=== PATIENT | female | born 1990 | race Caucasian/White ===

== ENCOUNTER 2017-10-23 | Inpatient (IN) | payer OTHER ==
[2017-10-23] MEDS: SOD CHLORIDE 0.9% 1,000 ML IV (00:56)
[2017-10-23] MEDS: KETOROLAC 30 MG INJ IV ×4 (00:56→22:34)
[2017-10-23] MEDS: PROCHLORPERAZINE 10 MG INJ IV ×2 (00:56→09:14)
[2017-10-23] MEDS: DIPHENHYDRAMINE 50 MG INJ IV ×2 (00:56→09:21)
[2017-10-23 01:15] LABS: ADD MAN DIFF? NO
[2017-10-23 01:21] LABS: BASOPHIL # 0.1 10^3/ul (0.0-0.1); BASOPHILS % 0.9 % (0.0-2.0); EOSINOPHILS # 0.2 10^3/ul (0.0-0.5); HEMATOCRIT 40.5 % (37.0-47.0); HEMOGLOBIN 13.8 g/dl (12.0-16.0); LYMPHOCYTES # 3.3 10^3/ul (0.8-2.9); LYMPHOCYTES % 33.5 % (15.0-51.0); MEAN CORPUSCULAR HEMOGLOBIN 31.1 pg (29.0-33.0); MEAN CORPUSCULAR HGB CONC 34.1 g/dl (32.0-37.0); MEAN CORPUSCULAR VOLUME 91.2 fl (82.0-101.0); MEAN PLATELET VOLUME 12.5 fl (7.4-10.4); MONOCYTE # 0.9 10^3/ul (0.3-0.9); MONOCYTES % 8.5 % (0.0-11.0); NEUTROPHIL # 5.5 10^3/ul (1.6-7.5); NEUTROPHILS % 54.9 % (39.0-77.0); PLATELET COUNT 202 10^3/UL (140-415); RED BLOOD COUNT 4.44 10^6/ul (4.20-5.40); RED CELL DISTRIBUTION WIDTH 12.4 % (11.5-14.5)
[2017-10-23 01:25] LABS: ADD UMIC NO; UR ASCORBIC ACID NEGATIVE (NEGATIVE); UR BILIRUBIN (Dip) NEGATIVE (NEGATIVE); UR BLOOD (Dip) NEGATIVE (NEGATIVE); UR CLARITY CLEAR (CLEAR); UR COLOR STRAW (YELLOW); UR GLUCOSE (Dip) NEGATIVE (NEGATIVE); UR KETONES (Dip) NEGATIVE (NEGATIVE); UR LEUKOCYTE ESTERASE (Dip) NEGATIVE Leu/ul (NEGATIVE); UR NITRITE (Dip) NEGATIVE (NEGATIVE); UR SPECIFIC GRAVITY (Dip) 1.005 (1.003-1.030); UR TOTAL PROTEIN (Dip) NEGATIVE (NEGATIVE); UR UROBILINOGEN (Dip) NEGATIVE (NEGATIVE)
[2017-10-23 01:39] LABS: ANION GAP 24 (8-16); BLOOD UREA NITROGEN 19 mg/dl (7-20); CALCIUM 10.3 mg/dl (8.4-10.2); CARBON DIOXIDE 20 mmol/L (21-31); CHLORIDE 107 mmol/L (97-110); GLUCOSE 97 mg/dl (70-220); SODIUM 147 mmol/L (135-144)
[2017-10-23 02:40] LABS: LITHIUM < 0.4 mmol/L (0.6-1.3)
[2017-10-23] MEDS ORDERED: OXCARBAZEPINE 150 MG TAB PO (09:00)
[2017-10-23] MEDS: OXCARBAZEPINE 150 MG TAB PO (09:15)
[2017-10-23] MEDS: SOD CHLORIDE 0.9% 500 ML IV (09:20)
[2017-10-23] MEDS: DEXTROSE 5%-0.45% NACL 1,000 ML IV ×2 (11:12→23:00)
[2017-10-23] MEDS: PANTOPRAZOLE (EC) 40 MG TAB PO (13:07)
[2017-10-23] MEDS: LORAZEPAM 0.5 MG TAB PO (19:00)
[2017-10-23] MEDS: DOCUSATE SODIUM 100 MG CAP PO (20:11)
[2017-10-23] MEDS: ACETAMINOPHEN 325 MG TAB PO (20:11)
[2017-10-23] MEDS: ONDANSETRON 4 MG INJ IV (23:17)
[2017-10-24] MEDS: PANTOPRAZOLE (EC) 40 MG TAB PO (05:03)
[2017-10-24 05:39] LABS: ADD MAN DIFF? NO
[2017-10-24 05:48] LABS: BASOPHIL # 0.1 10^3/ul (0.0-0.1); BASOPHILS % 0.7 % (0.0-2.0); EOSINOPHILS # 0.2 10^3/ul (0.0-0.5); EOSINOPHILS % 2.6 % (0.0-7.0); HEMATOCRIT 35.1 % (37.0-47.0); HEMOGLOBIN 11.8 g/dl (12.0-16.0); LYMPHOCYTES # 3.8 10^3/ul (0.8-2.9); LYMPHOCYTES % 44.9 % (15.0-51.0); MEAN CORPUSCULAR HEMOGLOBIN 31.1 pg (29.0-33.0); MEAN CORPUSCULAR HGB CONC 33.6 g/dl (32.0-37.0); MEAN CORPUSCULAR VOLUME 92.6 fl (82.0-101.0); MEAN PLATELET VOLUME 10.9 fl (7.4-10.4); MONOCYTE # 0.7 10^3/ul (0.3-0.9); MONOCYTES % 8.1 % (0.0-11.0); NEUTROPHIL # 3.7 10^3/ul (1.6-7.5); NEUTROPHILS % 43.6 % (39.0-77.0); PLATELET COUNT 205 10^3/UL (140-415); RED BLOOD COUNT 3.79 10^6/ul (4.20-5.40)
[2017-10-24 05:48] LABS: WHITE BLOOD COUNT 8.4 10^3/ul (4.8-10.8)
[2017-10-24 06:55] LABS: ANION GAP 15 (8-16); BLOOD UREA NITROGEN 15 mg/dl (7-20); CARBON DIOXIDE 21 mmol/L (21-31); CHLORIDE 111 mmol/L (97-110); CREATININE 0.68 mg/dl (0.44-1.00); GLUCOSE 89 mg/dl (70-220); POTASSIUM 3.9 mmol/L (3.5-5.1); SODIUM 143 mmol/L (135-144)
[2017-10-24] MEDS: DOCUSATE SODIUM 100 MG CAP PO ×2 (08:33→20:42)
[2017-10-24] MEDS: predniSONE 20 MG TAB PO (08:33)
[2017-10-24] MEDS: ONDANSETRON 4 MG INJ IV ×2 (08:43→16:36)
[2017-10-24] MEDS: SUMATRIPTAN 50 MG TAB PO ×2 (10:14→23:05)
[2017-10-24] MEDS: LORAZEPAM 0.5 MG TAB PO ×3 (10:57→23:04)
[2017-10-24 11:10] LABS: LITHIUM < 0.4 mmol/L (0.6-1.3)
[2017-10-24] MEDS: KETOROLAC 30 MG INJ IV ×2 (11:11→17:23)
[2017-10-24] MEDS: DEXTROSE 5%-0.45% NACL 1,000 ML IV ×2 (11:30→19:38)
[2017-10-24] MEDS: ACET/BUTAL/CAFF TAB PO (13:02)
[2017-10-24] MEDS: HYDROmorphONE 2 MG/ML SYG IV (16:23)
[2017-10-24] MEDS: morphine 2 MG INJ IV (20:43)
[2017-10-24] MEDS: DIPHENHYDRAMINE 50 MG INJ IV (23:06)
[2017-10-24] MEDS: PROCHLORPERAZINE 10 MG INJ IV (23:06)
[2017-10-25 05:08] LABS: ADD MAN DIFF? NO
[2017-10-25 05:12] LABS: BASOPHIL # 0.1 10^3/ul (0.0-0.1); BASOPHILS % 0.8 % (0.0-2.0); EOSINOPHILS # 0.1 10^3/ul (0.0-0.5); EOSINOPHILS % 1.9 % (0.0-7.0); HEMATOCRIT 31.9 % (37.0-47.0); HEMOGLOBIN 10.9 g/dl (12.0-16.0); LYMPHOCYTES # 3.2 10^3/ul (0.8-2.9); MEAN CORPUSCULAR HEMOGLOBIN 30.9 pg (29.0-33.0); MEAN CORPUSCULAR HGB CONC 34.2 g/dl (32.0-37.0); MEAN CORPUSCULAR VOLUME 90.4 fl (82.0-101.0); MEAN PLATELET VOLUME 10.9 fl (7.4-10.4); MONOCYTE # 0.7 10^3/ul (0.3-0.9); MONOCYTES % 9.9 % (0.0-11.0); NEUTROPHIL # 3.3 10^3/ul (1.6-7.5); NEUTROPHILS % 44.3 % (39.0-77.0); PLATELET COUNT 209 10^3/UL (140-415); RED BLOOD COUNT 3.53 10^6/ul (4.20-5.40); RED CELL DISTRIBUTION WIDTH 12.3 % (11.5-14.5)
[2017-10-25 05:12] LABS: WHITE BLOOD COUNT 7.5 10^3/ul (4.8-10.8)
[2017-10-25 05:45] LABS: ANION GAP 13 (8-16); BLOOD UREA NITROGEN 16 mg/dl (7-20); CALCIUM 8.7 mg/dl (8.4-10.2); CARBON DIOXIDE 22 mmol/L (21-31); CHLORIDE 109 mmol/L (97-110); CREATININE 0.68 mg/dl (0.44-1.00); GLUCOSE 97 mg/dl (70-220); POTASSIUM 3.3 mmol/L (3.5-5.1); SODIUM 141 mmol/L (135-144)
[2017-10-25] MEDS: PANTOPRAZOLE (EC) 40 MG TAB PO (06:01)
[2017-10-25] MEDS: DOCUSATE SODIUM 100 MG CAP PO ×2 (08:34→20:15)
[2017-10-25] MEDS: predniSONE 20 MG TAB PO (08:35)
[2017-10-25 10:51] LABS: INR 1.13; PROTIME 14.7 Sec (11.9-14.9); PT RATIO 1.1
[2017-10-25 10:52] LABS: PARTIAL THROMBOPLASTIN TIME 26.5 Sec (25.0-35.0)
[2017-10-25] MEDS: DIPHENHYDRAMINE 50 MG INJ IV ×2 (13:30→16:20)
[2017-10-25] MEDS: PROCHLORPERAZINE 10 MG INJ IV ×2 (13:30→16:20)
[2017-10-25] MEDS: LORAZEPAM 0.5 MG TAB PO (15:12)
[2017-10-25] MEDS: DEXTROSE 5%-0.45% NACL 1,000 ML IV (15:12)
[2017-10-25] MEDS: morphine 2 MG INJ IV ×3 (15:37→23:52)
[2017-10-25] MEDS: POTASSIUM CHLORIDE 20 MEQ POWDER FOR ORAL SOLN PO (16:23)
[2017-10-25 16:29] LABS: CSF RBC 0 /uL (0-0); CSF WBC 0 /cmm (0-10)
[2017-10-25 16:43] LABS: CSF CLARITY CLEAR; CSF VOLUME 5.5 ml; CSF#TUBE COUNT TUBE#4; CSF#TUBES REC'D 4
[2017-10-25 16:43] LABS: CSF COLOR COLORLESS
[2017-10-25 16:55] LABS: TOTAL PROTEIN,CSF 30 mg/dl (12-60)
[2017-10-25 16:55] LABS: GLUCOSE,CSF 59 mg/dl (50-80)
[2017-10-25] MEDS: KETOROLAC 30 MG INJ IV (18:29)
[2017-10-25] MEDS: ONDANSETRON 4 MG INJ IV (20:14)
[2017-10-25] MEDS: CYCLOBENZAPRINE 10 MG TAB PO (23:13)
[2017-10-26] MEDS: DEXTROSE 5%-0.45% NACL 1,000 ML IV ×3 (01:00→15:40)
[2017-10-26] MEDS: HYDROmorphONE 2 MG/ML SYG IV ×4 (01:37→20:43)
[2017-10-26 05:51] LABS: ADD MAN DIFF? NO
[2017-10-26 05:54] LABS: WHITE BLOOD COUNT 8.5 10^3/ul (4.8-10.8)
[2017-10-26 05:54] LABS: BASOPHIL # 0.1 10^3/ul (0.0-0.1); BASOPHILS % 0.7 % (0.0-2.0); EOSINOPHILS # 0.1 10^3/ul (0.0-0.5); EOSINOPHILS % 1.7 % (0.0-7.0); HEMATOCRIT 32.9 % (37.0-47.0); HEMOGLOBIN 11.2 g/dl (12.0-16.0); LYMPHOCYTES # 3.5 10^3/ul (0.8-2.9); LYMPHOCYTES % 41.3 % (15.0-51.0); MEAN CORPUSCULAR VOLUME 91.1 fl (82.0-101.0); MEAN PLATELET VOLUME 10.8 fl (7.4-10.4); MONOCYTE # 0.7 10^3/ul (0.3-0.9); NEUTROPHIL # 4.1 10^3/ul (1.6-7.5); NEUTROPHILS % 48.2 % (39.0-77.0); PLATELET COUNT 200 10^3/UL (140-415); RED BLOOD COUNT 3.61 10^6/ul (4.20-5.40); RED CELL DISTRIBUTION WIDTH 12.1 % (11.5-14.5)
[2017-10-26] MEDS: PANTOPRAZOLE (EC) 40 MG TAB PO (06:24)
[2017-10-26] MEDS: LORAZEPAM 0.5 MG TAB PO ×2 (06:24→18:15)
[2017-10-26] MEDS: KETOROLAC 30 MG INJ IV ×2 (06:34→18:13)
[2017-10-26 06:36] LABS: ANION GAP 14 (8-16); BLOOD UREA NITROGEN 19 mg/dl (7-20); CALCIUM 8.6 mg/dl (8.4-10.2); CARBON DIOXIDE 22 mmol/L (21-31); CHLORIDE 110 mmol/L (97-110); CREATININE 0.75 mg/dl (0.44-1.00); GLUCOSE 101 mg/dl (70-220); POTASSIUM 3.4 mmol/L (3.5-5.1); SODIUM 143 mmol/L (135-144)
[2017-10-26] MEDS: PROCHLORPERAZINE 10 MG INJ IV ×2 (07:29→19:27)
[2017-10-26] MEDS: DIPHENHYDRAMINE 50 MG INJ IV ×2 (07:29→19:27)
[2017-10-26] MEDS: predniSONE 20 MG TAB PO (11:40)
[2017-10-26] MEDS: DOCUSATE SODIUM 100 MG CAP PO ×2 (11:40→21:10)
[2017-10-26] MEDS: POTASSIUM CHLORIDE 20 MEQ POWDER FOR ORAL SOLN PO (14:06)
[2017-10-26] MEDS: SUMATRIPTAN 50 MG TAB PO (15:26)
[2017-10-26] MEDS: ONDANSETRON 4 MG INJ IV (15:45)
[2017-10-26] MEDS ORDERED: morphine LIQ (10 MG/5 ML) CUP PO (19:30)
[2017-10-27] MEDS: HYDROmorphONE 2 MG/ML SYG IV ×4 (00:57→13:35)
[2017-10-27] MEDS: OXCARBAZEPINE 600 MG PO ×2 (01:56→20:53)
[2017-10-27] MEDS: DEXTROSE 5%-0.45% NACL 1,000 ML IV ×3 (02:00→17:49)
[2017-10-27] MEDS: LORAZEPAM 0.5 MG TAB PO ×2 (04:43→16:28)
[2017-10-27] MEDS: KETOROLAC 30 MG INJ IV ×3 (04:44→23:27)
[2017-10-27 05:56] LABS: ANION GAP 15 (8-16); BLOOD UREA NITROGEN 13 mg/dl (7-20); CALCIUM 9.1 mg/dl (8.4-10.2); CARBON DIOXIDE 22 mmol/L (21-31); CHLORIDE 109 mmol/L (97-110); CREATININE 0.67 mg/dl (0.44-1.00); GLUCOSE 98 mg/dl (70-220); POTASSIUM 3.8 mmol/L (3.5-5.1); SODIUM 142 mmol/L (135-144)
[2017-10-27] MEDS: PANTOPRAZOLE (EC) 40 MG TAB PO (06:36)
[2017-10-27] MEDS: DIPHENHYDRAMINE 50 MG INJ IV ×3 (08:04→20:52)
[2017-10-27] MEDS: PROCHLORPERAZINE 10 MG INJ IV (08:04)
[2017-10-27] MEDS: predniSONE 20 MG TAB PO (09:31)
[2017-10-27] MEDS: DOCUSATE SODIUM 100 MG CAP PO ×2 (09:31→20:52)
[2017-10-27] MEDS: DIVALPROEX (EC) 250 MG TAB PO ×2 (13:35→23:22)
[2017-10-27] MEDS: PROCHLORPERAZINE 10 MG TAB PO (17:28)
[2017-10-27] MEDS: traMADol 50 MG TAB PO (18:34)
[2017-10-27] MEDS: ONDANSETRON 4 MG INJ IV (19:56)
[2017-10-27] MEDS: LORAZEPAM 2 MG INJ IV (20:52)
[2017-10-28] MEDS: LORAZEPAM 0.5 MG TAB PO ×5 (00:26→18:57)
[2017-10-28] MEDS: HYDROmorphONE 0.5 MG/0.5 ML SYG IV (00:27)
[2017-10-28] MEDS: PROCHLORPERAZINE 10 MG TAB PO ×2 (00:51→22:20)
[2017-10-28] MEDS: DIPHENHYDRAMINE 50 MG INJ IV ×4 (00:51→22:20)
[2017-10-28] MEDS: DEXTROSE 5%-0.45% NACL 1,000 ML IV ×2 (03:00→05:16)
[2017-10-28] MEDS: ONDANSETRON 4 MG INJ IV ×3 (05:22→16:40)
[2017-10-28] MEDS: PANTOPRAZOLE (EC) 40 MG TAB PO (05:22)
[2017-10-28] MEDS: traMADol 50 MG TAB PO ×2 (05:23→11:35)
[2017-10-28] MEDS: DOCUSATE SODIUM 100 MG CAP PO ×2 (09:42→20:52)
[2017-10-28] MEDS: DIVALPROEX (EC) 250 MG TAB PO ×2 (09:42→20:51)
[2017-10-28] MEDS: CYCLOBENZAPRINE 10 MG TAB PO ×2 (12:43→20:51)
[2017-10-28 15:07] LABS: ADD MAN DIFF? NO
[2017-10-28 15:12] LABS: BASOPHIL # 0.1 10^3/ul (0.0-0.1); BASOPHILS % 1.2 % (0.0-2.0); EOSINOPHILS # 0.1 10^3/ul (0.0-0.5); HEMATOCRIT 31.8 % (37.0-47.0); LYMPHOCYTES # 3.6 10^3/ul (0.8-2.9); LYMPHOCYTES % 51.5 % (15.0-51.0); MEAN CORPUSCULAR HEMOGLOBIN 31.2 pg (29.0-33.0); MEAN CORPUSCULAR HGB CONC 34.6 g/dl (32.0-37.0); MEAN CORPUSCULAR VOLUME 90.1 fl (82.0-101.0); MEAN PLATELET VOLUME 10.9 fl (7.4-10.4); MONOCYTE # 0.5 10^3/ul (0.3-0.9); MONOCYTES % 7.4 % (0.0-11.0); NEUTROPHIL # 2.6 10^3/ul (1.6-7.5); NEUTROPHILS % 37.8 % (39.0-77.0); PLATELET COUNT 192 10^3/UL (140-415); RED BLOOD COUNT 3.53 10^6/ul (4.20-5.40); RED CELL DISTRIBUTION WIDTH 12.1 % (11.5-14.5)
[2017-10-28 15:12] LABS: WHITE BLOOD COUNT 6.9 10^3/ul (4.8-10.8)
[2017-10-28 15:42] LABS: ANION GAP 11 (8-16); BLOOD UREA NITROGEN 10 mg/dl (7-20); CALCIUM 8.5 mg/dl (8.4-10.2); CARBON DIOXIDE 26 mmol/L (21-31); CHLORIDE 108 mmol/L (97-110); CREATININE 0.68 mg/dl (0.44-1.00); GLUCOSE 87 mg/dl (70-220); POTASSIUM 3.3 mmol/L (3.5-5.1); SODIUM 142 mmol/L (135-144)
[2017-10-28] MEDS ORDERED: SOD CHLORIDE 0.9% 1,000 ML IV ×2 (16:30)
[2017-10-28] MEDS ORDERED: DIPHENHYDRAMINE 50 MG CAP PO (16:30)
[2017-10-28] MEDS: KETOROLAC 30 MG INJ IV ×2 (16:40→22:40)
[2017-10-28] MEDS: POTASSIUM CHLORIDE 20 MEQ POWDER FOR ORAL SOLN PO (17:30)
[2017-10-28] MEDS: POTASSIUM CHLORIDE (SR) 20 MEQ TAB PO (20:52)
[2017-10-28] MEDS: OXCARBAZEPINE 600 MG PO (20:52)
[2017-10-29] MEDS: PANTOPRAZOLE (EC) 40 MG TAB PO (05:16)
[2017-10-29] MEDS: POTASSIUM CHLORIDE 30 MEQ in SOD CHLORIDE 0.9% 1,000 ML IV ×2 (05:16→19:15)
[2017-10-29] MEDS: PROCHLORPERAZINE 10 MG TAB PO ×3 (05:21→22:59)
[2017-10-29] MEDS: DIPHENHYDRAMINE 50 MG INJ IV ×4 (05:21→23:01)
[2017-10-29] MEDS: KETOROLAC 30 MG INJ IV ×4 (05:22→23:00)
[2017-10-29] MEDS: LORAZEPAM 0.5 MG TAB PO ×4 (05:24→23:01)
[2017-10-29] MEDS: DOCUSATE SODIUM 100 MG CAP PO ×2 (08:34→21:09)
[2017-10-29] MEDS: CYCLOBENZAPRINE 10 MG TAB PO ×2 (08:34→16:36)
[2017-10-29] MEDS: DIVALPROEX (EC) 250 MG TAB PO ×2 (08:34→21:09)
[2017-10-29] MEDS: ONDANSETRON 4 MG INJ IV (10:18)
[2017-10-29 14:00] LABS: ADD MAN DIFF? NO
[2017-10-29 14:02] LABS: BASOPHIL # 0.1 10^3/ul (0.0-0.1); BASOPHILS % 1.3 % (0.0-2.0); EOSINOPHILS # 0.2 10^3/ul (0.0-0.5); HEMATOCRIT 41.2 % (37.0-47.0); HEMOGLOBIN 13.8 g/dl (12.0-16.0); LYMPHOCYTES # 2.2 10^3/ul (0.8-2.9); LYMPHOCYTES % 34.1 % (15.0-51.0); MEAN CORPUSCULAR HEMOGLOBIN 30.6 pg (29.0-33.0); MEAN CORPUSCULAR HGB CONC 33.5 g/dl (32.0-37.0); MEAN CORPUSCULAR VOLUME 91.4 fl (82.0-101.0); MEAN PLATELET VOLUME 10.5 fl (7.4-10.4); MONOCYTE # 0.5 10^3/ul (0.3-0.9); MONOCYTES % 7.1 % (0.0-11.0); NEUTROPHIL # 3.4 10^3/ul (1.6-7.5); NEUTROPHILS % 54.3 % (39.0-77.0); PLATELET COUNT 248 10^3/UL (140-415); RED BLOOD COUNT 4.51 10^6/ul (4.20-5.40)
[2017-10-29 14:02] LABS: WHITE BLOOD COUNT 6.3 10^3/ul (4.8-10.8)
[2017-10-29 14:19] LABS: ALANINE AMINOTRANSFERASE 29 IU/L (13-69); ANION GAP 17 (8-16); ASPARTATE AMINO TRANSFERASE 16 IU/L (15-46); BILIRUBIN,INDIRECT 0.2 mg/dl (0-1.1); BILIRUBIN,TOTAL 0.2 mg/dl (0.2-1.3); BLOOD UREA NITROGEN 13 mg/dl (7-20); CALCIUM 9.6 mg/dl (8.4-10.2); CARBON DIOXIDE 24 mmol/L (21-31); CHLORIDE 106 mmol/L (97-110); CREATININE 0.76 mg/dl (0.44-1.00); GLUCOSE 77 mg/dl (70-220); POTASSIUM 4.4 mmol/L (3.5-5.1); SODIUM 143 mmol/L (135-144)
[2017-10-29 14:20] LABS: ALBUMIN 4.5 g/dl (3.3-4.9); ALBUMIN/GLOBULIN RATIO 1.36; TOTAL PROTEIN 7.8 g/dl (6.1-8.1)
[2017-10-29 14:23] LABS: ALKALINE PHOSPHATASE 68 IU/L (42-121)
[2017-10-29] MEDS: ACETAMINOPHEN 500 MG TAB PO (14:31)
[2017-10-29] MEDS: OXCARBAZEPINE 600 MG PO (21:10)
[2017-10-30] MEDS: PANTOPRAZOLE (EC) 40 MG TAB PO (05:57)
[2017-10-30] MEDS ORDERED: predniSONE 10 MG TAB PO (09:00)
[2017-10-30] MEDS: POTASSIUM CHLORIDE 30 MEQ in SOD CHLORIDE 0.9% 1,000 ML IV ×2 (09:04→22:36)
[2017-10-30] MEDS: PROCHLORPERAZINE 10 MG TAB PO ×2 (09:32→23:57)
[2017-10-30] MEDS: CYCLOBENZAPRINE 10 MG TAB PO (09:32)
[2017-10-30] MEDS: DOCUSATE SODIUM 100 MG CAP PO ×2 (09:32→21:20)
[2017-10-30] MEDS: DIVALPROEX (EC) 250 MG TAB PO ×2 (09:32→21:20)
[2017-10-30] MEDS: LORAZEPAM 0.5 MG TAB PO ×2 (09:35→22:29)
[2017-10-30] MEDS: KETOROLAC 30 MG INJ IV ×3 (09:37→22:29)
[2017-10-30 10:11] LABS: HAAIG REFLEX REFLEX FILED
[2017-10-30 10:32] LABS: ALANINE AMINOTRANSFERASE 29 IU/L (13-69); ALBUMIN 3.6 g/dl (3.3-4.9); ALKALINE PHOSPHATASE 51 IU/L (42-121); ASPARTATE AMINO TRANSFERASE 13 IU/L (15-46); BILIRUBIN,INDIRECT 0.1 mg/dl (0-1.1); BILIRUBIN,TOTAL 0.1 mg/dl (0.2-1.3); TOTAL PROTEIN 6.3 g/dl (6.1-8.1)
[2017-10-30 10:35] LABS: MONOTEST Positive (NEG)
[2017-10-30 11:05] LABS: HEPATITIS B SURFACE ANTIGEN NEGATIVE (NEGATIVE)
[2017-10-30 11:22] LABS: HEPATITIS B CORE ANTIBODY NEGATIVE (NEGATIVE); HEPATITIS C VIRAL ANTIBODY NEGATIVE (NEGATIVE)
[2017-10-30 11:23] LABS: HIV 1&2 ANTIBODY NEGATIVE (NEGATIVE)
[2017-10-30 11:46] LABS: ERYTHROCYTE SEDIMENTATION RATE 3 mm/Hr (0-20)
[2017-10-30] MEDS: MENTHOL/METH SALICYLATE 30 GM OINT TOP ×2 (13:45→21:00)
[2017-10-30] MEDS: BISACODYL (EC) 5 MG TAB PO (21:20)
[2017-10-30] MEDS: OXCARBAZEPINE 600 MG PO (21:22)
[2017-10-30] MEDS: DIPHENHYDRAMINE 50 MG INJ IV (23:58)
[2017-10-31] MEDS: PANTOPRAZOLE (EC) 40 MG TAB PO (05:40)
[2017-10-31] MEDS: DIVALPROEX (EC) 250 MG TAB PO (08:59)
[2017-10-31] MEDS: MENTHOL/METH SALICYLATE 30 GM OINT TOP ×2 (08:59→12:39)
[2017-10-31] MEDS: DOCUSATE SODIUM 100 MG CAP PO (09:00)
[2017-10-31] MEDS: BISACODYL (EC) 5 MG TAB PO (09:01)
[2017-10-31] MEDS: POTASSIUM CHLORIDE 30 MEQ in SOD CHLORIDE 0.9% 1,000 ML IV (12:08)
== END 2017-10-31 17:35 | disposition home or self-care (01) | DRG 866 ==
LOC: FTE → MS1 00:42
PROC: 009U3ZX Drainage of Spinal Canal, Percutaneous Approach, Diagnostic (ICD-10-PCS; principal; 2017-10-25)
DX: B27.90 Infectious mononucleosis, unspecified without complication (principal); F31.9 Bipolar disorder, unspecified; G43.911 Migraine, unspecified, intractable, with status migrainosus; L70.9 Acne, unspecified; F12.90 Cannabis use, unspecified, uncomplicated; Z87.891 Personal history of nicotine dependence
CPT/HCPCS: 70553; 72040; 80048; 80053; 80076; 80178; 81003; 82945; 84157; 84703; 85025; 85610; 85651; 85730; 86308; 86635; 86703; 86704; 86709; 86803; 87070; 87340; 87529; 87536; 89051; 95819

== ENCOUNTER 2017-11-13 05:06 | Inpatient (IN) | payer OTHER ==
[2017-11-13] MEDS: SUMATRIPTAN 6 MG/0.5 ML INJ SC ×2 (07:05→08:38)
[2017-11-13] MEDS: ACETAMINOPHEN 325 MG TAB PO (07:05)
[2017-11-13] MEDS: ONDANSETRON 4 MG INJ IV ×3 (07:05→22:36)
[2017-11-13] MEDS: morphine 2 MG INJ IV (10:55)
[2017-11-13] MEDS ORDERED: LORAZEPAM 0.5 MG TAB PO (12:00)
[2017-11-13] MEDS: KETOROLAC 30 MG INJ IV ×2 (13:55→20:40)
[2017-11-13] MEDS: DIPHENHYDRAMINE 50 MG INJ IV ×2 (13:55→20:41)
[2017-11-13] MEDS: PROCHLORPERAZINE 10 MG TAB PO ×2 (13:56→20:38)
[2017-11-13] MEDS: DIVALPROEX (EC) 250 MG TAB PO ×2 (14:00→20:38)
[2017-11-13] MEDS: OXCARBAZEPINE 300 MG TAB PO (21:00)
[2017-11-14 06:14] LABS: ADD MAN DIFF? NO
[2017-11-14 06:26] LABS: WHITE BLOOD COUNT 10.9 10^3/ul (4.8-10.8)
[2017-11-14 06:26] LABS: BASOPHIL # 0.1 10^3/ul (0.0-0.1); EOSINOPHILS # 0.1 10^3/ul (0.0-0.5); EOSINOPHILS % 0.7 % (0.0-7.0); HEMATOCRIT 34.9 % (37.0-47.0); LYMPHOCYTES # 2.4 10^3/ul (0.8-2.9); LYMPHOCYTES % 22.2 % (15.0-51.0); MEAN CORPUSCULAR HEMOGLOBIN 30.9 pg (29.0-33.0); MEAN CORPUSCULAR HGB CONC 34.4 g/dl (32.0-37.0); MEAN CORPUSCULAR VOLUME 89.9 fl (82.0-101.0); MEAN PLATELET VOLUME 10.5 fl (7.4-10.4); MONOCYTE # 0.6 10^3/ul (0.3-0.9); MONOCYTES % 5.5 % (0.0-11.0); NEUTROPHIL # 7.7 10^3/ul (1.6-7.5); NEUTROPHILS % 70.4 % (39.0-77.0); PLATELET COUNT 242 10^3/UL (140-415); RED BLOOD COUNT 3.88 10^6/ul (4.20-5.40); RED CELL DISTRIBUTION WIDTH 12.4 % (11.5-14.5)
[2017-11-14 07:20] LABS: ANION GAP 16 (8-16); BLOOD UREA NITROGEN 18 mg/dl (7-20); CALCIUM 9.2 mg/dl (8.4-10.2); CARBON DIOXIDE 25 mmol/L (21-31); CHLORIDE 109 mmol/L (97-110); CREATININE 0.74 mg/dl (0.44-1.00); GLUCOSE 83 mg/dl (70-220); POTASSIUM 4.4 mmol/L (3.5-5.1); SODIUM 146 mmol/L (135-144)
[2017-11-14] MEDS: DIVALPROEX (EC) 250 MG TAB PO ×2 (09:01→20:50)
[2017-11-14] MEDS: PROCHLORPERAZINE 10 MG TAB PO (09:12)
[2017-11-14] MEDS: KETOROLAC 30 MG INJ IV ×2 (09:13→18:26)
[2017-11-14] MEDS: DIPHENHYDRAMINE 50 MG INJ IV ×2 (09:13→18:25)
[2017-11-14] MEDS: OXCARBAZEPINE 300 MG TAB PO (20:50)
[2017-11-15 05:41] LABS: ADD MAN DIFF? NO
[2017-11-15 05:53] LABS: BASOPHIL # 0.1 10^3/ul (0.0-0.1); BASOPHILS % 1.2 % (0.0-2.0); EOSINOPHILS # 0.3 10^3/ul (0.0-0.5); EOSINOPHILS % 3.3 % (0.0-7.0); HEMATOCRIT 35.9 % (37.0-47.0); HEMOGLOBIN 12.1 g/dl (12.0-16.0); LYMPHOCYTES # 3.6 10^3/ul (0.8-2.9); LYMPHOCYTES % 44.2 % (15.0-51.0); MEAN CORPUSCULAR HEMOGLOBIN 30.2 pg (29.0-33.0); MEAN CORPUSCULAR HGB CONC 33.7 g/dl (32.0-37.0); MEAN CORPUSCULAR VOLUME 89.5 fl (82.0-101.0); MEAN PLATELET VOLUME 10.2 fl (7.4-10.4); MONOCYTE # 0.8 10^3/ul (0.3-0.9); MONOCYTES % 9.9 % (0.0-11.0); NEUTROPHIL # 3.4 10^3/ul (1.6-7.5); NEUTROPHILS % 41.2 % (39.0-77.0); PLATELET COUNT 221 10^3/UL (140-415); RED BLOOD COUNT 4.01 10^6/ul (4.20-5.40); RED CELL DISTRIBUTION WIDTH 12.2 % (11.5-14.5)
[2017-11-15 05:53] LABS: WHITE BLOOD COUNT 8.2 10^3/ul (4.8-10.8)
[2017-11-15 06:14] LABS: ANION GAP 15 (8-16); BLOOD UREA NITROGEN 22 mg/dl (7-20); CALCIUM 8.9 mg/dl (8.4-10.2); CARBON DIOXIDE 26 mmol/L (21-31); CHLORIDE 108 mmol/L (97-110); CREATININE 0.76 mg/dl (0.44-1.00); GLUCOSE 79 mg/dl (70-220); SODIUM 145 mmol/L (135-144)
[2017-11-15] MEDS: PROCHLORPERAZINE 5 MG TAB PO ×2 (08:18→18:37)
[2017-11-15] MEDS: DIPHENHYDRAMINE 50 MG INJ IV ×2 (08:19→18:32)
[2017-11-15] MEDS: traMADol 50 MG TAB PO (08:19)
[2017-11-15] MEDS: DIVALPROEX (EC) 250 MG TAB PO ×3 (08:19→21:01)
[2017-11-15] MEDS: KETOROLAC 30 MG INJ IV ×2 (08:32→18:35)
[2017-11-15] MEDS ORDERED: DIVALPROEX (EC) 250 MG TAB PO (14:00)
[2017-11-15] MEDS: OXCARBAZEPINE 300 MG TAB PO (21:01)
[2017-11-15] MEDS: ONDANSETRON 4 MG INJ IV (22:49)
[2017-11-16] MEDS: DIPHENHYDRAMINE 50 MG INJ IV ×3 (05:44→19:27)
[2017-11-16] MEDS: KETOROLAC 30 MG INJ IV ×3 (05:44→19:28)
[2017-11-16] MEDS: PROCHLORPERAZINE 5 MG TAB PO ×3 (05:44→19:27)
[2017-11-16 07:33] LABS: ADD MAN DIFF? NO
[2017-11-16 07:47] LABS: WHITE BLOOD COUNT 8.4 10^3/ul (4.8-10.8)
[2017-11-16 07:47] LABS: BASOPHIL # 0.1 10^3/ul (0.0-0.1); BASOPHILS % 1.1 % (0.0-2.0); EOSINOPHILS # 0.2 10^3/ul (0.0-0.5); EOSINOPHILS % 2.1 % (0.0-7.0); HEMATOCRIT 35.5 % (37.0-47.0); HEMOGLOBIN 12.3 g/dl (12.0-16.0); LYMPHOCYTES # 2.8 10^3/ul (0.8-2.9); LYMPHOCYTES % 33.7 % (15.0-51.0); MEAN CORPUSCULAR HEMOGLOBIN 30.6 pg (29.0-33.0); MEAN CORPUSCULAR HGB CONC 34.6 g/dl (32.0-37.0); MEAN CORPUSCULAR VOLUME 88.3 fl (82.0-101.0); MEAN PLATELET VOLUME 10.9 fl (7.4-10.4); MONOCYTE # 0.6 10^3/ul (0.3-0.9); MONOCYTES % 7.5 % (0.0-11.0); NEUTROPHIL # 4.6 10^3/ul (1.6-7.5); NEUTROPHILS % 55.4 % (39.0-77.0); PLATELET COUNT 240 10^3/UL (140-415); RED BLOOD COUNT 4.02 10^6/ul (4.20-5.40); RED CELL DISTRIBUTION WIDTH 12.2 % (11.5-14.5)
[2017-11-16 08:01] LABS: BLOOD UREA NITROGEN 23 mg/dl (7-20); CALCIUM 8.8 mg/dl (8.4-10.2); GLUCOSE 73 mg/dl (70-220)
[2017-11-16 08:21] LABS: ANION GAP 18 (8-16); SODIUM 145 mmol/L (135-144)
[2017-11-16 08:22] LABS: CARBON DIOXIDE 24 mmol/L (21-31); CHLORIDE 107 mmol/L (97-110); CREATININE 0.74 mg/dl (0.44-1.00)
[2017-11-16] MEDS: DIVALPROEX (EC) 250 MG TAB PO ×2 (11:17→21:11)
[2017-11-16] MEDS: ONDANSETRON 4 MG INJ IV (17:35)
[2017-11-16] MEDS: BISACODYL (EC) 5 MG TAB PO (17:36)
[2017-11-16] MEDS: DOCUSATE SODIUM 100 MG CAP PO ×2 (17:36→21:10)
[2017-11-16] MEDS: OXCARBAZEPINE 300 MG TAB PO (21:11)
[2017-11-17] MEDS: ONDANSETRON 4 MG INJ IV ×3 (00:38→22:33)
[2017-11-17 06:02] LABS: ADD MAN DIFF? NO
[2017-11-17 06:10] LABS: BASOPHIL # 0.1 10^3/ul (0.0-0.1); BASOPHILS % 0.8 % (0.0-2.0); EOSINOPHILS # 0.3 10^3/ul (0.0-0.5); EOSINOPHILS % 2.7 % (0.0-7.0); HEMATOCRIT 36.4 % (37.0-47.0); HEMOGLOBIN 12.6 g/dl (12.0-16.0); LYMPHOCYTES # 3.4 10^3/ul (0.8-2.9); LYMPHOCYTES % 35.3 % (15.0-51.0); MEAN CORPUSCULAR HGB CONC 34.6 g/dl (32.0-37.0); MEAN CORPUSCULAR VOLUME 89.7 fl (82.0-101.0); MEAN PLATELET VOLUME 10.6 fl (7.4-10.4); MONOCYTE # 1.1 10^3/ul (0.3-0.9); MONOCYTES % 11.4 % (0.0-11.0); NEUTROPHIL # 4.7 10^3/ul (1.6-7.5); NEUTROPHILS % 49.6 % (39.0-77.0); PLATELET COUNT 223 10^3/UL (140-415); RED BLOOD COUNT 4.06 10^6/ul (4.20-5.40); RED CELL DISTRIBUTION WIDTH 12.1 % (11.5-14.5)
[2017-11-17 06:10] LABS: WHITE BLOOD COUNT 9.5 10^3/ul (4.8-10.8)
[2017-11-17 06:36] LABS: ANION GAP 17 (8-16); BLOOD UREA NITROGEN 25 mg/dl (7-20); CALCIUM 9.2 mg/dl (8.4-10.2); CARBON DIOXIDE 26 mmol/L (21-31); CHLORIDE 109 mmol/L (97-110); CREATININE 0.89 mg/dl (0.44-1.00); GLUCOSE 79 mg/dl (70-220); POTASSIUM 4.5 mmol/L (3.5-5.1); SODIUM 147 mmol/L (135-144)
[2017-11-17] MEDS: DOCUSATE SODIUM 100 MG CAP PO ×3 (09:00→21:01)
[2017-11-17] MEDS: DIVALPROEX (EC) 250 MG TAB PO ×3 (09:00→21:01)
[2017-11-17] MEDS: BISACODYL (EC) 5 MG TAB PO (12:43)
[2017-11-17 18:48] LABS: ADD UMIC NO; UR ASCORBIC ACID NEGATIVE (NEGATIVE); UR BILIRUBIN (Dip) NEGATIVE (NEGATIVE); UR BLOOD (Dip) NEGATIVE (NEGATIVE); UR CLARITY CLEAR (CLEAR); UR COLOR YELLOW (YELLOW); UR GLUCOSE (Dip) NEGATIVE (NEGATIVE); UR KETONES (Dip) 1+ mg/dL (NEGATIVE); UR LEUKOCYTE ESTERASE (Dip) NEGATIVE Leu/ul (NEGATIVE); UR NITRITE (Dip) NEGATIVE (NEGATIVE); UR SPECIFIC GRAVITY (Dip) 1.012 (1.003-1.030); UR TOTAL PROTEIN (Dip) NEGATIVE (NEGATIVE); UR UROBILINOGEN (Dip) NEGATIVE (NEGATIVE)
[2017-11-17] MEDS: OXCARBAZEPINE 300 MG TAB PO (21:02)
[2017-11-17] MEDS: DIPHENHYDRAMINE 50 MG INJ IV (22:36)
[2017-11-17] MEDS: KETOROLAC 30 MG INJ IV (22:41)
[2017-11-18] MEDS: DIVALPROEX (EC) 250 MG TAB PO (13:53)
[2017-11-18] MEDS: DOCUSATE SODIUM 100 MG CAP PO (13:53)
[2017-11-18 14:10] LABS: ADD MAN DIFF? NO
[2017-11-18 14:12] LABS: BASOPHIL # 0.1 10^3/ul (0.0-0.1); BASOPHILS % 1.1 % (0.0-2.0); EOSINOPHILS # 0.1 10^3/ul (0.0-0.5); EOSINOPHILS % 2.1 % (0.0-7.0); HEMATOCRIT 38.9 % (37.0-47.0); HEMOGLOBIN 13.3 g/dl (12.0-16.0); LYMPHOCYTES % 37.6 % (15.0-51.0); MEAN CORPUSCULAR HEMOGLOBIN 30.3 pg (29.0-33.0); MEAN CORPUSCULAR HGB CONC 34.2 g/dl (32.0-37.0); MEAN CORPUSCULAR VOLUME 88.6 fl (82.0-101.0); MEAN PLATELET VOLUME 10.8 fl (7.4-10.4); MONOCYTE # 0.5 10^3/ul (0.3-0.9); MONOCYTES % 9.1 % (0.0-11.0); NEUTROPHIL # 2.6 10^3/ul (1.6-7.5); NEUTROPHILS % 49.9 % (39.0-77.0); PLATELET COUNT 237 10^3/UL (140-415); RED BLOOD COUNT 4.39 10^6/ul (4.20-5.40); RED CELL DISTRIBUTION WIDTH 12.6 % (11.5-14.5)
[2017-11-18 14:12] LABS: WHITE BLOOD COUNT 5.3 10^3/ul (4.8-10.8)
[2017-11-18 14:34] LABS: ANION GAP 19 (8-16); BLOOD UREA NITROGEN 18 mg/dl (7-20); CALCIUM 9.7 mg/dl (8.4-10.2); CARBON DIOXIDE 26 mmol/L (21-31); CHLORIDE 104 mmol/L (97-110); CREATININE 0.71 mg/dl (0.44-1.00); GLUCOSE 97 mg/dl (70-220); POTASSIUM 4.1 mmol/L (3.5-5.1); SODIUM 145 mmol/L (135-144)
[2017-11-18] MEDS: KETOROLAC 30 MG INJ IV (16:32)
[2017-11-18] MEDS: DIPHENHYDRAMINE 50 MG INJ IV (16:32)
[2017-11-18] MEDS: ONDANSETRON 4 MG INJ IV (16:32)
== END 2017-11-18 18:50 | disposition home health service (06) | DRG 103 ==
LOC: MS2 05:06
DX: R51 Headache (principal); F31.9 Bipolar disorder, unspecified
CPT/HCPCS: 80048; 81003; 85025; 87081; 87086